=== PATIENT | male | born 1955 | race Caucasian/White ===

== ENCOUNTER 2021-09-27 08:57 | Emergency (ER) | payer MEDICARE ==
[~2021-09-27] VITALS: Ht 185.4 cm; Wt 88.2 kg
[2021-09-27 08:58] VITALS: BP 200/90
[2021-09-27] MEDS ORDERED: METF-838 PO (09:15)
[2021-09-27] MEDS ORDERED: LISI40TA4 PO (09:15)
[2021-09-27] MEDS ORDERED: B-122500 PO (09:15)
[2021-09-27] MEDS ORDERED: RABE1TAB4 PO (09:15)
[2021-09-27] MEDS ORDERED: ALLE180T33 PO (09:15)
[2021-09-27] MEDS ORDERED: SILD25TA2 PO (09:15)
[2021-09-27] MEDS ORDERED: LEVO112T2 PO (09:15)
[2021-09-27] MEDS ORDERED: ATOR80TA59 PO (09:15)
[2021-09-27] MEDS ORDERED: ASPI81CH33 PO (09:15)
[2021-09-27] MEDS ORDERED: GABA600T4 PO (09:15)
[2021-09-27] MEDS ORDERED: MORPHINE 4 MG/ML 1ML VIAL/SYRINGE (J2270) IV ONE (12:40)
[2021-09-27] MEDS ORDERED: ONDANSETRON 4MG/2ML VIAL IV ONE (12:40)
[2021-09-27 13:12] LABS: BASO # 0.1 10^3/uL (0.0-0.2); BASO % 0.7 % (0.0-1.0); EOS # 0.1 10^3/uL (0.0-0.5); EOS % 1.5 % (0.0-3.0); HEMATOCRIT 42.9 % (42.0-52.0); HEMOGLOBIN 14.6 g/dl (13.5-17.5); LYMPH # 1.4 10^3/uL (1.5-5.0); LYMPH % 19.9 % (24.0-44.0); MEAN CORPUSCULAR HEMOGLOBIN 30.6 pg (27.0-33.0); MEAN CORPUSCULAR VOLUME 89.9 fl (80.0-96.0); MONO # 0.8 10^3/uL (0.0-0.8); MONO % 11.1 % (2.0-8.0); NEUTROPHILS # 4.8 10^3/uL (1.5-8.5); NEUTROPHILS % 66.5 % (36.0-66.0); PLATELET COUNT, AUTOMATED 232 10^3/uL (150-450); RED BLOOD COUNT 4.77 10^6/uL (4.30-6.10); WHITE BLOOD COUNT 7.2 10^3/uL (4.0-10.0)
[2021-09-27] MEDS ORDERED: ISOVUE-370 76% 100ML VIAL As Ordered ONE (13:58)
[2021-09-27] MEDS ORDERED: PERC5TAB12 PO (14:48)
[2021-09-27] MEDS ORDERED: PERCOCET 5MG/325MG TAB PO ONE (14:50)
== END 2021-09-27 14:57 | disposition home or self-care (01) ==
LOC: M ED 08:57
DX: R07.81 Pleurodynia (principal); I10 Essential (primary) hypertension; M54.50 Low back pain, unspecified; E11.9 Type 2 diabetes mellitus without complications; M43.26 Fusion of spine, lumbar region; Z88.6 Allergy status to analgesic agent; Z91.030 Bee allergy status; Z79.811 Long term (current) use of aromatase inhibitors; Z79.899 Other long term (current) drug therapy
CPT/HCPCS: 71275; 80047; 85025; 96374; 96375; 99283; J2270; J2405; Q9967

== ENCOUNTER → 2021-10-25 | Outpatient (CLI) | payer OTHER ==
[~2021-10-25] MED LIST: ALLE180T33 PO; ASPI81CH33 PO; ATOR80TA59 PO; B-122500 PO; GABA600T4 PO; LEVO112T2 PO; LISI40TA4 PO; METF-838 PO; PERC5TAB12 PO; RABE1TAB4 PO; SILD25TA2 PO
== END ==
LOC: M PAIN 10:30
PROVIDERS: ATTEND Nurse Practitioner Family
DX: M96.1 Postlaminectomy syndrome, not elsewhere classified (principal); E11.9 Type 2 diabetes mellitus without complications; E03.9 Hypothyroidism, unspecified; G47.30 Sleep apnea, unspecified; K21.9 Gastro-esophageal reflux disease without esophagitis; Z87.891 Personal history of nicotine dependence; Z88.6 Allergy status to analgesic agent; Z91.030 Bee allergy status; Z79.82 Long term (current) use of aspirin; Z79.84 Long term (current) use of oral hypoglycemic drugs; Z79.899 Other long term (current) drug therapy

== ENCOUNTER → 2021-12-11 | Outpatient (CLI) | payer OTHER ==
[2021-12-11 13:24] LABS: ALBUMIN 3.7 GM/DL (3.2-5.2); ALT/SGPT 25 U/L (12-78); BILIRUBIN,TOTAL 0.6 MG/DL (0.2-1.0); BLOOD UREA NITROGEN 15 MG/DL (7-18); CALCIUM LEVEL 8.5 MG/DL (8.8-10.2); CARBON DIOXIDE LEVEL 31 MEQ/L (21-32); CHLORIDE LEVEL 107 MEQ/L (98-107); CHOLESTEROL LEVEL 111 MG/DL (<200); CHOLESTEROL RISK RATIO 2.642 (<5); CREATININE FOR GFR 1.11 MG/DL (0.70-1.30); GLOMERULAR FILTRATION RATE > 60.0 (>49); GLUCOSE, FASTING 157 MG/DL (70-100); HDL CHOLESTEROL 42 MG/DL (>40); LDL CHOLESTEROL 52 MG/DL (<100); NON-HDL-C 69 MG/DL; POTASSIUM SERUM 3.8 MEQ/L (3.5-5.1); SODIUM LEVEL 142 MEQ/L (136-145); TOTAL PROTEIN 6.5 GM/DL (6.4-8.2); TRIGLYCERIDES LEVEL 87 MG/DL (<150)
[2021-12-11 14:30] LABS: HEMOGLOBIN A1c 9.4 %
== END ==
LOC: M WUC 08:04
PROVIDERS: ATTEND Family Medicine
DX: E78.5 Hyperlipidemia, unspecified (principal); E11.9 Type 2 diabetes mellitus without complications; E03.9 Hypothyroidism, unspecified; R19.7 Diarrhea, unspecified

== ENCOUNTER 2022-01-03 07:01 | Day surgery (SDC) | payer OTHER ==
[~2022-01-03] VITALS: Ht 185.4 cm; Wt 92.1 kg
[~2022-01-03 07:01] MED LIST changes: +FAMO20TA5; +FARX1TAB5; +NS 1,000 ML IV ONE
[2022-01-03] MEDS ORDERED: LIDOCAINE 2% 100MG/5ML SDV (FOR ANES.) As Ordered ONE (07:11)
[2022-01-03] MEDS ORDERED: propofoL 200 MG/20 ML VIAL As Ordered ONE (07:11)
[2022-01-03] MEDS ORDERED: fentaNYL 100 MCG/2 ML INJECTION As Ordered ONE (09:21)
[2022-01-03 10:23] VITALS: BP 165/79
== END 2022-01-03 10:25 | disposition home or self-care (01) ==
LOC: M OPP 07:01
PROVIDERS: ATTEND Surgery
DX: K22.89 Other specified disease of esophagus (principal); K21.9 Gastro-esophageal reflux disease without esophagitis; K31.7 Polyp of stomach and duodenum; Z80.0 Family history of malignant neoplasm of digestive organs; Z80.42 Family history of malignant neoplasm of prostate; G47.33 Obstructive sleep apnea (adult) (pediatric); Z79.82 Long term (current) use of aspirin; Z79.899 Other long term (current) drug therapy; Z88.8 Allergy status to other drugs, medicaments and biological substances; Z91.030 Bee allergy status; Z87.891 Personal history of nicotine dependence
CPT/HCPCS: 43239; 88305; J3010

== ENCOUNTER → 2022-06-04 | Outpatient (CLI) | payer OTHER ==
[~2022-06-04] MED LIST changes: -NS 1,000 ML IV ONE
== END ==
LOC: M RAD 07:42
PROVIDERS: ATTEND Nurse Practitioner Family
DX: M47.816 Spondylosis without myelopathy or radiculopathy, lumbar region (principal); M51.36 Other intervertebral disc degeneration, lumbar region; M54.41 Lumbago with sciatica, right side; M41.55 Other secondary scoliosis, thoracolumbar region; G89.29 Other chronic pain

== ENCOUNTER → 2022-10-25 | Outpatient (CLI) | payer OTHER ==
[2022-10-25 12:40] LABS: BASO % 0.6 % (0.0-1.0); EOS # 0.3 10^3/uL (0.0-0.5); HEMATOCRIT 37.5 % (42.0-52.0); HEMOGLOBIN 12.4 g/dl (13.5-17.5); LYMPH # 1.1 10^3/uL (1.5-5.0); LYMPH % 17.4 % (24.0-44.0); MEAN CORPUSCULAR HGB CONC 33.1 g/dl (32.0-36.5); MEAN CORPUSCULAR VOLUME 93.8 fl (80.0-96.0); MONO # 0.9 10^3/uL (0.0-0.8); MONO % 14.5 % (2.0-8.0); NEUTROPHILS # 4.1 10^3/uL (1.5-8.5); NEUTROPHILS % 63.3 % (36.0-66.0); PLATELET COUNT, AUTOMATED 196 10^3/uL (150-450); WHITE BLOOD COUNT 6.5 10^3/uL (4.0-10.0)
[2022-10-25 13:08] LABS: CREATININE, URINE 71.1 MG/DL
[2022-10-25 13:09] LABS: MAU/CREAT RATIO 18.2 MCG/MG (0.0-30.0)
[2022-10-25 14:17] LABS: THYROID STIMULATING HORMONE 1.273 uIU/ML (0.55-4.78)
[2022-10-25 14:29] LABS: ALBUMIN 4.3 G/DL (3.2-5.2); ALKALINE PHOSPHATASE 91 U/L (46-116); ALT/SGPT 19 U/L (7.0-40); AST/SGOT 23 U/L (<34); BILIRUBIN,TOTAL 0.7 MG/DL (0.3-1.2); BLOOD UREA NITROGEN 23 MG/DL (9-23); CALCIUM LEVEL 9.2 MG/DL (8.3-10.6); CARBON DIOXIDE LEVEL 27 MMOL/L (20-31); CHLORIDE LEVEL 105 MMOL/L (98-107); CHOLESTEROL LEVEL 102 MG/DL (<200); CHOLESTEROL RISK RATIO 2.64 (<5); CREATININE FOR GFR 1.18 MG/DL (0.70-1.30); GLOMERULAR FILTRATION RATE > 60.0 (>49); GLUCOSE, FASTING 125 MG/DL (74-106); HDL CHOLESTEROL 38.6 MG/DL (>40); LDL CHOLESTEROL 47.6 MG/DL (<100); NON-HDL-C 63 MG/DL; POTASSIUM SERUM 4.8 MMOL/L (3.5-5.1); SODIUM LEVEL 140 MMOL/L (136-145); TOTAL PROTEIN 7.5 G/DL (5.7-8.2); TRIGLYCERIDES LEVEL 79 MG/DL (<150)
[2022-10-25 18:23] LABS: HEMOGLOBIN A1c 7.5 % (4.0-6.0)
== END ==
LOC: M WUC 09:12
PROVIDERS: ATTEND Family Medicine
DX: E11.9 Type 2 diabetes mellitus without complications (principal); E78.5 Hyperlipidemia, unspecified; E03.9 Hypothyroidism, unspecified; I10 Essential (primary) hypertension

== ENCOUNTER → 2023-06-15 | Outpatient (CLI) | payer OTHER ==
[~2023-06-15] MED LIST changes: +AMLO1TAB24 PO; +AMOX875T2; +KETO2CR; +PRED20TA PO; +SILD50TA2
== END ==
LOC: M RAD 14:35
PROVIDERS: ATTEND Family Medicine
DX: G43.919 Migraine, unspecified, intractable, without status migrainosus (principal); I63.531 Cerebral infarction due to unspecified occlusion or stenosis of right posterior cerebral artery

== ENCOUNTER 2023-08-30 14:36 | Emergency (ER) | payer OTHER ==
[~2023-08-30] VITALS: Ht 185.4 cm; Wt 90.3 kg
[2023-08-30] MEDS ORDERED: METO1TAB7 (15:06)
[2023-08-30] MEDS ORDERED: PRAS10TA2 (15:06)
[2023-08-30] MEDS ORDERED: ACETAMINOPHEN 325 MG TAB PO ONE (15:30)
[2023-08-30 17:00] VITALS: BP 171/79
[2023-08-30 17:06] VITALS: TEMP 98.2; O2SAT 98
== END 2023-08-30 17:26 | disposition home or self-care (01) ==
LOC: M ED 14:36 → EDBD 14:36 → M ED 17:26
DX: M19.012 Primary osteoarthritis, left shoulder (principal); I10 Essential (primary) hypertension; K21.9 Gastro-esophageal reflux disease without esophagitis; J44.9 Chronic obstructive pulmonary disease, unspecified; E78.5 Hyperlipidemia, unspecified; Z91.030 Bee allergy status; Z88.6 Allergy status to analgesic agent; Z79.82 Long term (current) use of aspirin; Z79.811 Long term (current) use of aromatase inhibitors; Z79.4 Long term (current) use of insulin; Z79.899 Other long term (current) drug therapy
CPT/HCPCS: 73030; 99284; G0463

== ENCOUNTER → 2023-11-06 | Outpatient (REF) | payer OTHER ==
[~2023-11-06] MED LIST changes: +METO1TAB7; +PRAS10TA2
[2023-11-06 12:32] LABS: BASO # 0.1 10^3/uL (0.0-0.2); BASO % 0.7 % (0.0-1.0); EOS # 0.2 10^3/uL (0.0-0.5); EOS % 3.1 % (0.0-3.0); HEMATOCRIT 36.5 % (42.0-52.0); HEMOGLOBIN 12.1 g/dl (13.5-17.5); LYMPH # 0.6 10^3/uL (1.5-5.0); LYMPH % 7.7 % (24.0-44.0); MEAN CORPUSCULAR HEMOGLOBIN 30.6 pg (27.0-33.0); MEAN CORPUSCULAR HGB CONC 33.2 g/dl (32.0-36.5); MEAN CORPUSCULAR VOLUME 92.4 fl (80.0-96.0); MONO # 1.5 10^3/uL (0.0-0.8); MONO % 19.6 % (2.0-8.0); NEUTROPHILS # 5.1 10^3/uL (1.5-8.5); NEUTROPHILS % 68.4 % (36.0-66.0); PLATELET COUNT, AUTOMATED 199 10^3/uL (150-450); RED BLOOD COUNT 3.95 10^6/uL (4.30-6.10); WHITE BLOOD COUNT 7.4 10^3/uL (4.0-10.0)
[2023-11-06 13:02] LABS: CREATININE, URINE 55.3 MG/DL
[2023-11-06 13:04] LABS: ALKALINE PHOSPHATASE 87 U/L (46-116); ALT/SGPT 15 U/L (7.0-40); AST/SGOT 13 U/L (<34); BILIRUBIN,TOTAL 0.4 MG/DL (0.3-1.2); BLOOD UREA NITROGEN 26 MG/DL (9-23); CALCIUM LEVEL 8.4 MG/DL (8.3-10.6); CARBON DIOXIDE LEVEL 29 MMOL/L (20-31); CHLORIDE LEVEL 106 MMOL/L (98-107); CHOLESTEROL LEVEL 119 MG/DL (<200); CHOLESTEROL RISK RATIO 3.34 (<5); CREATININE FOR GFR 1.07 MG/DL (0.70-1.30); GLOMERULAR FILTRATION RATE > 60.0 (>49); GLUCOSE, FASTING 285 MG/DL (74-106); HDL CHOLESTEROL 35.6 MG/DL (>40); LDL CHOLESTEROL 56.4 MG/DL (<100); NON-HDL-C 83.4 MG/DL; POTASSIUM SERUM 4.6 MMOL/L (3.5-5.1); SODIUM LEVEL 138 MMOL/L (136-145); TOTAL PROTEIN 6.7 G/DL (5.7-8.2); TRIGLYCERIDES LEVEL 135 MG/DL (<150)
[2023-11-06 13:24] LABS: HEMOGLOBIN A1c 8.2 % (4.0-6.0)
== END ==
LOC: M LABWUC 11:34
PROVIDERS: ATTEND Family Medicine
DX: E11.9 Type 2 diabetes mellitus without complications (principal); E78.5 Hyperlipidemia, unspecified

== ENCOUNTER → 2023-11-21 | Outpatient (CLI) | payer OTHER ==
[2023-11-21 17:50] LABS: PERCENT SATURATION 23.7 % (19.7-50.0)
[2023-11-21 17:51] LABS: FOLATE 17.32 NG/ML (>5.4)
[2023-11-21 17:52] LABS: THYROID STIMULATING HORMONE 1.419 uIU/ML (0.55-4.78)
== END ==
LOC: M WUC 13:16
PROVIDERS: ATTEND Family Medicine
DX: E03.9 Hypothyroidism, unspecified (principal); D64.9 Anemia, unspecified

== ENCOUNTER 2024-03-04 08:28 | Day surgery (SDC) | payer OTHER ==
[~2024-03-04] VITALS: Ht 185.4 cm; Wt 87.4 kg
[~2024-03-04 08:28] MED LIST changes: +ACET-683 PO; +BENA25TA5 PO; +PHENYLEPHRINE 10% OPHTH SOL 5ML OD PRN
[2024-03-04] MEDS: OFLOXACIN 0.3 % (OCUFLOX) OPTH SOL 5ML OD ONE (09:13)
[2024-03-04] MEDS: PHENYLEPHRINE 2.5% OPHTH SOL 2ML OD SCH (09:14)
[2024-03-04] MEDS: ATROPINE SULFATE 1% OPHTH SOLN 2ML BTL OD SCH (09:14)
[2024-03-04] MEDS: LIDOCAINE 3.5 % 1ML OPHTH TOPICAL GEL OU ONE (09:14)
[2024-03-04] MEDS: TROPICAMIDE 1% OPHTH SOLN 15ML OD SCH (09:14)
[2024-03-04] MEDS ORDERED: MIDAZOLAM INJ 2MG/2ML VIAL As Ordered ONE (09:52)
[2024-03-04] MEDS: LIDOCAINE 1% SDV 5ML VIAL As Ordered ONE (09:52)
[2024-03-04] MEDS: BSS IRRIG/VANCO(10MG)/TOBRA(5MG)/EPINEPH(1:1000-0.5CC)500ML BAG-ORONLY As Ordered ONE (09:52)
[2024-03-04] MEDS: CEFUROXIME 1MG/0.1ML INTRACAMERAL INJ As Ordered ONE (09:52)
[2024-03-04] MEDS ORDERED: fentaNYL 100 MCG/2 ML INJECTION As Ordered ONE (09:52)
[2024-03-04 10:02] VITALS: BP 168/77; TEMP 97.2; O2SAT 99
== END 2024-03-04 10:30 | disposition home or self-care (01) ==
LOC: M SDC 08:28
PROVIDERS: ATTEND Ophthalmology
DX: H25.11 Age-related nuclear cataract, right eye (principal); I25.2 Old myocardial infarction; K21.9 Gastro-esophageal reflux disease without esophagitis; E11.9 Type 2 diabetes mellitus without complications; E03.9 Hypothyroidism, unspecified; Z98.61 Coronary angioplasty status; Z91.030 Bee allergy status; Z88.8 Allergy status to other drugs, medicaments and biological substances; Z79.82 Long term (current) use of aspirin; Z79.84 Long term (current) use of oral hypoglycemic drugs
CPT/HCPCS: 66984; 92015; J0697; J2250; J3010; V2788

== ENCOUNTER 2024-03-10 12:32 | Emergency (ER) | payer OTHER, MEDICAID ==
[~2024-03-10] VITALS: Ht 185.4 cm; Wt 89.1 kg
[~2024-03-10 12:32] MED LIST changes: -FARX1TAB5; +FARX1TAB5 PO; -METO1TAB7; +METO1TAB7 PO; -PHENYLEPHRINE 10% OPHTH SOL 5ML OD PRN; -PRAS10TA2; +PRAS10TA2 PO; -SILD50TA2; +SILD50TA2 PO
[2024-03-10 12:35] VITALS: TEMP 99.1
[2024-03-10] MEDS ORDERED: CIPRHCOTIC AS (12:44)
[2024-03-10] MEDS ORDERED: PRED1SOL3 OP (12:44)
[2024-03-10 13:55] LABS: HEMATOCRIT 32.5 % (42.0-52.0); HEMOGLOBIN 10.9 g/dl (13.5-17.5); MEAN CORPUSCULAR HEMOGLOBIN 30.9 pg (27.0-33.0); MEAN CORPUSCULAR HGB CONC 33.5 g/dl (32.0-36.5); MEAN CORPUSCULAR VOLUME 92.1 fl (80.0-96.0); PLATELET COUNT, AUTOMATED 186 10^3/uL (150-450); RED BLOOD COUNT 3.53 10^6/uL (4.30-6.10); WHITE BLOOD COUNT 5.8 10^3/uL (4.0-10.0)
[2024-03-10 14:08] LABS: INR 1.07; PROTHROMBIN TIME 13.6 SECONDS (12.5-14.5)
[2024-03-10 14:31] LABS: BLOOD UREA NITROGEN 44 MG/DL (9-23); CALCIUM LEVEL 8.6 MG/DL (8.3-10.6); CARBON DIOXIDE LEVEL 29 MMOL/L (20-31); CHLORIDE LEVEL 108 MMOL/L (98-107); CREATININE FOR GFR 1.14 MG/DL (0.70-1.30); GLOMERULAR FILTRATION RATE > 60.0 (>49); GLUCOSE, FASTING 196 MG/DL (74-106); POTASSIUM SERUM 4.5 MMOL/L (3.5-5.1); SODIUM LEVEL 141 MMOL/L (136-145)
[2024-03-10] MEDS ORDERED: ISOVUE-370 76% 100ML VIAL As Ordered ONE (14:33)
[2024-03-10] MEDS: MIDAZOLAM INJ 2MG/2ML VIAL IV STA (14:38)
[2024-03-10 16:00] VITALS: BP 136/63; O2SAT 98
[2024-03-10] MEDS ORDERED: ASPI-655 PO (23:12)
[2024-03-10] MEDS ORDERED: LEVO112T2 PO (23:12)
[2024-03-10] MEDS ORDERED: ACET-897 PO (23:12)
[2024-03-10] MEDS ORDERED: LISI40TA4 PO (23:12)
[2024-03-10] MEDS ORDERED: RABE1TAB4 PO (23:12)
[2024-03-10] MEDS ORDERED: ACIP1TAB PO (23:12)
[2024-03-10] MEDS ORDERED: CIPR0.3S37 OD (23:19)
[2024-03-10] MEDS ORDERED: KETO0.5S4 OD (23:19)
[2024-03-10] MEDS ORDERED: FAMO20TA PO (23:24)
[2024-03-10] MEDS ORDERED: FARX1TAB3 PO (23:24)
[2024-03-11] MEDS ORDERED: PREDOPD OD (04:43)
== END 2024-03-10 16:15 | disposition home or self-care (01) ==
LOC: M ED 12:32
DX: R59.9 Enlarged lymph nodes, unspecified (principal); J35.1 Hypertrophy of tonsils; E11.9 Type 2 diabetes mellitus without complications; I10 Essential (primary) hypertension; E78.5 Hyperlipidemia, unspecified; E03.9 Hypothyroidism, unspecified; G47.33 Obstructive sleep apnea (adult) (pediatric); Z87.891 Personal history of nicotine dependence; Z91.030 Bee allergy status; Z88.6 Allergy status to analgesic agent; Z79.82 Long term (current) use of aspirin; Z79.02 Long term (current) use of antithrombotics/antiplatelets; Z79.811 Long term (current) use of aromatase inhibitors; Z79.52 Long term (current) use of systemic steroids; Z79.899 Other long term (current) drug therapy

== ENCOUNTER 2024-03-10 17:57 | Inpatient (IN) | payer OTHER, MEDICAID ==
[~2024-03-10] VITALS: Ht 185.4 cm; Wt 88.6 kg
[~2024-03-10 17:57] MED LIST changes: +CIPRHCOTIC AS; +PRED1SOL3 OP
[2024-03-10 19:16] LABS: HEMATOCRIT 31.5 % (42.0-52.0); HEMOGLOBIN 10.6 g/dl (13.5-17.5); MEAN CORPUSCULAR HEMOGLOBIN 31.1 pg (27.0-33.0); MEAN CORPUSCULAR HGB CONC 33.7 g/dl (32.0-36.5); MEAN CORPUSCULAR VOLUME 92.4 fl (80.0-96.0); PLATELET COUNT, AUTOMATED 207 10^3/uL (150-450); RED BLOOD COUNT 3.41 10^6/uL (4.30-6.10)
[2024-03-10] MEDS ORDERED: ISOVUE-370 76% 100ML VIAL As Ordered ONE (21:07)
[2024-03-10] MEDS: MIDAZOLAM INJ 2MG/2ML VIAL IV STA (21:23)
[2024-03-10] MEDS ORDERED: ACIP1TAB PO (23:12)
[2024-03-10] MEDS ORDERED: LISI40TA4 PO (23:12)
[2024-03-10] MEDS ORDERED: RABE1TAB4 PO (23:12)
[2024-03-10] MEDS ORDERED: ASPI-655 PO (23:12)
[2024-03-10] MEDS ORDERED: ACET-897 PO (23:12)
[2024-03-10] MEDS ORDERED: LEVO112T2 PO (23:12)
[2024-03-10] MEDS ORDERED: KETO0.5S4 OD (23:19)
[2024-03-10] MEDS ORDERED: CIPR0.3S37 OD (23:19)
[2024-03-10] MEDS ORDERED: FARX1TAB3 PO (23:24)
[2024-03-10] MEDS ORDERED: FAMO20TA PO (23:24)
[2024-03-10] MEDS ORDERED: HOME MED LIST COMPLETE! XX SCH (23:30)
[2024-03-10] MEDS ORDERED: MOM 30ML SUSPENSION UDC PO PRN (23:50)
[2024-03-10] MEDS ORDERED: MAALOX 30 ML SUSP *UDC PO PRN (23:50)
[2024-03-11] VITALS (19 sets, daily range): BP systolic 115–185; BP diastolic 57–86; TEMP 97.6–99.4; O2SAT 95–99
[2024-03-11 00:04] LABS: BLOOD UREA NITROGEN 43 MG/DL (9-23); CALCIUM LEVEL 8.8 MG/DL (8.3-10.6); CARBON DIOXIDE LEVEL 28 MMOL/L (20-31); CHLORIDE LEVEL 111 MMOL/L (98-107); CREATININE FOR GFR 1.04 MG/DL (0.70-1.30); GLOMERULAR FILTRATION RATE > 60.0 (>49); GLUCOSE, FASTING 202 MG/DL (74-106); POTASSIUM SERUM 4.1 MMOL/L (3.5-5.1); SODIUM LEVEL 143 MMOL/L (136-145)
[2024-03-11] MEDS: NS 1,000 ML IV SCH (00:06)
[2024-03-11] MEDS ORDERED: DEXTROSE 50% 50ML SYRINGE IV PRN (02:15)
[2024-03-11] MEDS ORDERED: GLUCAGON INJ 1MG VIAL SC PRN (02:15)
[2024-03-11] MEDS ORDERED: GLUCOSE 4 GM CHEW PO PRN (02:15)
[2024-03-11] MEDS ORDERED: PREDOPD OD (04:43)
[2024-03-11] MEDS: LEVOTHYROXINE 112MCG TABLET (0.112MG) PO SCH (06:00)
[2024-03-11] MEDS: INSULIN LISPRO (NovoLOG) PER UNIT SC SCH ×2 (06:32→21:38)
[2024-03-11] MEDS: LEVOTHYROXINE 100MCG (0.1MG) 5ML SDV PF (SOLUTION FORM) IV ONE (06:37)
[2024-03-11] MEDS ORDERED: METOPROLOL 5 MG/5 ML VIAL IV PRN ×2 (08:05→09:00)
[2024-03-11] MEDS: PANTOPRAZOLE 20 MG TAB PO SCH (08:59)
[2024-03-11] MEDS: FAMOTIDINE 20 MG TAB PO SCH (09:00)
[2024-03-11] MEDS: DAPAGLIFLOZIN PROPANEDIOL 10MG TABLET (FARXIGA) PO SCH (09:00)
[2024-03-11] MEDS ORDERED: CIPROFLOXACIN 0.3% OPHTH SOLN 2.5ML OD SCH (09:00)
[2024-03-11] MEDS: ATORVASTATIN 20 MG TAB PO SCH (09:00)
[2024-03-11] MEDS ORDERED: KETOROLAC 0.5% OPHTH SOLN OD SCH (09:00)
[2024-03-11] MEDS: amLODIPine 5 MG TAB PO SCH (09:00)
[2024-03-11] MEDS: lisinopriL 40MG TAB PO SCH (09:01)
[2024-03-11] MEDS: prednisoLONE ACET 1% OPHTH SUSP 5ML OD SCH (09:40)
[2024-03-11] MEDS ORDERED: MORPHINE 2 MG/ML 1ML VIAL As Ordered ONE (10:14)
[2024-03-11] MEDS: MORPHINE 2 MG/ML 1ML VIAL IV STA (10:19)
[2024-03-11] MEDS: ASPIRIN 300 MG SUPP PR SCH (10:22)
[2024-03-11] MEDS: ACETAMINOPHEN *IV* 1,000 MG in IV 1 EA IV STA (10:27)
[2024-03-11] MEDS: diphenhydrAMINE 50MG/ML VIAL IV STA (14:34)
[2024-03-11] MEDS: methylPREDNISolone 125MG 2ML VIAL IV ONE (14:34)
[2024-03-11] MEDS ORDERED: LIDOCAINE 1% MDV 20ML VIAL As Ordered ONE (15:02)
[2024-03-11] MEDS ORDERED: NON-FORMULARY 1 EA EA PO SCH (20:00)
[2024-03-11] MEDS: PANTOPRAZOLE 40MG VIAL IV SCH (20:22)
[2024-03-11] MEDS ORDERED: METOPROLOL SUCC (TopROL XL) 50MG **XL** TAB PO SCH (21:00)
[2024-03-11] MEDS ORDERED: ASPIRIN 81MG CHEW TABLET PO SCH (21:00)
[2024-03-12] VITALS (7 sets, daily range): BP systolic 131–176; BP diastolic 63–82; TEMP 98.1–98.5; O2SAT 96–98
[2024-03-12 04:44] LABS: HEMATOCRIT 26.3 % (42.0-52.0); HEMOGLOBIN 8.8 g/dl (13.5-17.5); LYMPH # 0.7 10^3/uL (1.5-5.0); LYMPH % 9.6 % (24.0-44.0); MEAN CORPUSCULAR HGB CONC 33.5 g/dl (32.0-36.5); MEAN CORPUSCULAR VOLUME 92.6 fl (80.0-96.0); MONO # 0.1 10^3/uL (0.0-0.8); MONO % 1.1 % (2.0-8.0); NEUTROPHILS # 6.7 10^3/uL (1.5-8.5); NEUTROPHILS % 88.9 % (36.0-66.0); PLATELET COUNT, AUTOMATED 174 10^3/uL (150-450); RED BLOOD COUNT 2.84 10^6/uL (4.30-6.10); WHITE BLOOD COUNT 7.5 10^3/uL (4.0-10.0)
[2024-03-12 05:07] LABS: INR 1.13; PROTHROMBIN TIME 14.1 SECONDS (12.5-14.5)
[2024-03-12 05:08] LABS: BLOOD UREA NITROGEN 34 MG/DL (9-23); CALCIUM LEVEL 8.5 MG/DL (8.3-10.6); CARBON DIOXIDE LEVEL 25 MMOL/L (20-31); CHLORIDE LEVEL 115 MMOL/L (98-107); GLOMERULAR FILTRATION RATE > 60.0 (>49); GLUCOSE, FASTING 186 MG/DL (74-106); POTASSIUM SERUM 4.2 MMOL/L (3.5-5.1); SODIUM LEVEL 145 MMOL/L (136-145)
[2024-03-12] MEDS: INSULIN LISPRO (NovoLOG) PER UNIT SC SCH (07:41)
[2024-03-12] MEDS: predniSONE 20 MG TAB PO SCH (10:03)
[2024-03-12] MEDS: PRASUGREL 10MG TABLET (PATIENT'S OWN MED) PO SCH (10:03)
[2024-03-12] MEDS: ACETAMINOPHEN TAB 650MG DOSE (2X325MG) PO PRN (10:06)
[2024-03-12] MEDS: METOPROLOL SUCC (TopROL XL) 50MG **XL** TAB PO ONE (12:59)
[2024-03-12 13:58] LABS: PERCENT SATURATION 34.9 % (19.7-50.0)
[2024-03-12 14:00] LABS: FERRITIN 95.9 NG/ML (10.5-307.3); FOLATE 14.06 NG/ML (>5.4)
[2024-03-12] MEDS: PERCOCET 5MG/325MG TAB PO PRN (20:14)
[2024-03-13 04:00] VITALS: BP 150/73; TEMP 97.8; O2SAT 98
[2024-03-13 07:20] LABS: BASO % 0.1 % (0.0-1.0); EOS % 0.2 % (0.0-3.0); HEMATOCRIT 24.1 % (42.0-52.0); HEMOGLOBIN 8.1 g/dl (13.5-17.5); LYMPH # 1.6 10^3/uL (1.5-5.0); LYMPH % 13.3 % (24.0-44.0); MEAN CORPUSCULAR HGB CONC 33.6 g/dl (32.0-36.5); MEAN CORPUSCULAR VOLUME 92.3 fl (80.0-96.0); MONO % 8.5 % (2.0-8.0); NEUTROPHILS # 9.2 10^3/uL (1.5-8.5); NEUTROPHILS % 77.4 % (36.0-66.0); PLATELET COUNT, AUTOMATED 185 10^3/uL (150-450); RED BLOOD COUNT 2.61 10^6/uL (4.30-6.10); WHITE BLOOD COUNT 11.8 10^3/uL (4.0-10.0)
[2024-03-13 07:26] VITALS: BP 173/80; TEMP 97.1; O2SAT 98
[2024-03-13 07:41] VITALS: BP 173/80
[2024-03-13] MEDS: METOPROLOL SUCC (TopROL XL) 50MG **XL** TAB PO SCH (07:41)
[2024-03-13 07:44] LABS: BLOOD UREA NITROGEN 28 MG/DL (9-23); CALCIUM LEVEL 8.3 MG/DL (8.3-10.6); CARBON DIOXIDE LEVEL 26 MMOL/L (20-31); CHLORIDE LEVEL 111 MMOL/L (98-107); CREATININE FOR GFR 1.03 MG/DL (0.70-1.30); GLOMERULAR FILTRATION RATE > 60.0 (>49); GLUCOSE, FASTING 166 MG/DL (74-106); POTASSIUM SERUM 3.8 MMOL/L (3.5-5.1); SODIUM LEVEL 142 MMOL/L (136-145)
[2024-03-13 09:00] VITALS: BP 142/64
[2024-03-13 11:45] VITALS: BP 164/74; TEMP 97.7; O2SAT 99
[2024-03-13] MEDS: FERRIC CARBOXYMALTOSE INJ 750 MG, VIAL MATE ADAPTER 1 EACH in NS 250 ML IV ONE (13:32)
[2024-03-13 16:21] VITALS: BP 164/80
[2024-03-13] MEDS ORDERED: NORV5TAB PO (16:33)
[2024-03-13] MEDS ORDERED: PRED20TA PO (16:33)
== END 2024-03-13 18:20 | disposition home or self-care (01) | DRG 144 ==
LOC: M ED 17:57 → M ED INP 23:02 → M ICU 03-11 00:20 → M MSPAV 03-13 11:41
PROVIDERS: ADMIT Family Medicine; ATTEND Internal Medicine
PROC: 0CJS8ZZ Inspection of Larynx, Via Natural or Artificial Opening Endoscopic (ICD-10-PCS; 2024-03-11)
PROC: 07B13ZX Excision of Right Neck Lymphatic, Percutaneous Approach, Diagnostic (ICD-10-PCS; principal; 2024-03-11 15:30)
DX: C09.9 Malignant neoplasm of tonsil, unspecified (principal); R04.2 Hemoptysis; D62 Acute posthemorrhagic anemia; C77.0 Secondary and unspecified malignant neoplasm of lymph nodes of head, face and neck; I10 Essential (primary) hypertension; E11.9 Type 2 diabetes mellitus without complications; E03.9 Hypothyroidism, unspecified; I25.10 Atherosclerotic heart disease of native coronary artery without angina pectoris; E78.5 Hyperlipidemia, unspecified; K21.9 Gastro-esophageal reflux disease without esophagitis; Z95.5 Presence of coronary angioplasty implant and graft; Z91.030 Bee allergy status; Z88.6 Allergy status to analgesic agent; Z79.899 Other long term (current) drug therapy; Z98.49 Cataract extraction status, unspecified eye

== ENCOUNTER → 2024-03-31 | Outpatient (CLI) | payer OTHER, MEDICAID ==
[~2024-03-31] MED LIST changes: +ACET-897 PO; +ACIP1TAB PO; +ASPI-655 PO; +CIPR0.3S37 OD; +FAMO20TA PO; +FARX1TAB3 PO; +KETO0.5S4 OD; +LORA1TAB23 PO; +NORV5TAB PO; +ONDA-284 PO; +PREDOPD OD; +PROC10TA5 PO
== END ==
LOC: M PLARAD 09:03
PROVIDERS: ATTEND General Practice
DX: C09.0 Malignant neoplasm of tonsillar fossa (principal)
CPT/HCPCS: 78815; A9552

== ENCOUNTER → 2024-04-14 | Outpatient (CLI) | payer OTHER, MEDICAID ==
[~2024-04-14] MED LIST changes: +LIDOCAINE 1% MDV 20ML VIAL As Ordered ONE; +MIDAZOLAM INJ 2MG/2ML VIAL As Ordered ONE; +ceFAZolin 2 GM/D5W 50 ML IV BAG As Ordered ONE; +fentaNYL 100 MCG/2 ML INJECTION As Ordered ONE
[2024-04-14 13:43] VITALS: TEMP 98.4
[2024-04-14] MEDS: NS 1,000 ML IV SCH (14:22)
[2024-04-14] MEDS: ceFAZolin SOD 2 GM in IV 1 EA IV ONE (14:22)
[2024-04-14 15:45] VITALS: BP 172/84; O2SAT 100
== END ==
LOC: M IRPRO 13:25
PROVIDERS: ATTEND Internal Medicine Hematology & Oncology
DX: C09.0 Malignant neoplasm of tonsillar fossa (principal)
CPT/HCPCS: 36561; 99152; 99153; C1769; J0690; J2250; J3010

== ENCOUNTER → 2024-04-22 | Outpatient (RCR) | payer OTHER, MEDICAID ==
[~2024-04-22] MED LIST changes: +ALPR0.5T3 PO; -LIDOCAINE 1% MDV 20ML VIAL As Ordered ONE; +MAGN400T2 PO; -MIDAZOLAM INJ 2MG/2ML VIAL As Ordered ONE; -ceFAZolin 2 GM/D5W 50 ML IV BAG As Ordered ONE; -fentaNYL 100 MCG/2 ML INJECTION As Ordered ONE
== END ==
LOC: M ONCR 04-13 13:48
PROVIDERS: ATTEND General Practice
DX: Z51.0 Encounter for antineoplastic radiation therapy (principal); C09.0 Malignant neoplasm of tonsillar fossa

== ENCOUNTER 2024-05-22 07:45 | Outpatient (RCR) | payer OTHER, MEDICAID ==
[~2024-05-22 07:45] MED LIST changes: -ACIP1TAB PO; +GABA-1490 PO; -GABA600T4 PO; +LIDVISCBTL PO; +METO1TAB32 PO; +OXYC1SOL3 PO; +RABE20TA88 PO
[2024-05-26] MEDS ORDERED: OXYC-673 PO (08:36)
[2024-05-26] MEDS ORDERED: XTAM9CAP PO (15:00)
== END 2024-05-23 ==
LOC: M ONCR 07:45
PROVIDERS: ATTEND General Practice
DX: Z51.0 Encounter for antineoplastic radiation therapy (principal); C09.0 Malignant neoplasm of tonsillar fossa

== ENCOUNTER 2024-06-06 20:11 | Inpatient (IN) | payer OTHER, MEDICAID ==
[~2024-06-06 20:11] MED LIST changes: +OXYC-673 PO; +XTAM9CAP PO
[2024-06-06] MEDS: EMLA CREAM 5GM TUBE (LIDOCAINE/PRILOCAINE) TOP ONE (21:18)
[2024-06-06] MEDS: NS 1,000 ML IV ONE (21:56)
[2024-06-06 22:04] LABS: BASO % 0.4 % (0.0-1.0); EOS % 0.8 % (0.0-3.0); HEMATOCRIT 31.2 % (42.0-52.0); HEMOGLOBIN 10.4 g/dl (13.5-17.5); LYMPH # 0.2 10^3/uL (1.5-5.0); LYMPH % 8.7 % (24.0-44.0); MEAN CORPUSCULAR HEMOGLOBIN 30.9 pg (27.0-33.0); MEAN CORPUSCULAR HGB CONC 33.3 g/dl (32.0-36.5); MEAN CORPUSCULAR VOLUME 92.6 fl (80.0-96.0); MONO # 0.7 10^3/uL (0.0-0.8); MONO % 29.5 % (2.0-8.0); NEUTROPHILS # 1.5 10^3/uL (1.5-8.5); NEUTROPHILS % 60.2 % (36.0-66.0); PLATELET COUNT, AUTOMATED 134 10^3/uL (150-450); RED BLOOD COUNT 3.37 10^6/uL (4.30-6.10); WHITE BLOOD COUNT 2.4 10^3/uL (4.0-10.0)
[2024-06-06 22:50] LABS: ALBUMIN 3.7 G/DL (3.2-5.2); BILIRUBIN,DIRECT 0.2 MG/DL (<0.4); BILIRUBIN,TOTAL 0.3 MG/DL (0.3-1.2); CREATININE FOR GFR 1.28 MG/DL (0.70-1.30); GLOMERULAR FILTRATION RATE 59.5 (>49); MAGNESIUM LEVEL 1.4 MG/DL (1.8-2.4); POTASSIUM SERUM 5.1 MMOL/L (3.5-5.1); TOTAL PROTEIN 6.7 G/DL (5.7-8.2)
[2024-06-06] MEDS: MAG SULF 1GM/100ML (MAG RUN) 1 GM in IV 1 EA IV ONE (23:41)
[2024-06-07] MEDS: INSULIN LISPRO (NovoLOG) PER UNIT SC SCH
[2024-06-07] MEDS ORDERED: GLUCOSE 4 GM CHEW PO PRN (00:25)
[2024-06-07] MEDS ORDERED: GLUCAGON INJ 1MG VIAL SC PRN (00:25)
[2024-06-07] MEDS ORDERED: DEXTROSE 50% 50ML SYRINGE IV PRN (00:25)
[2024-06-07 01:17] VITALS: BP 152/83; TEMP 97.5; O2SAT 100
[2024-06-07 01:24] LABS: HEMOGLOBIN 9.6 g/dl (13.5-17.5); MEAN CORPUSCULAR HEMOGLOBIN 30.5 pg (27.0-33.0); MEAN CORPUSCULAR HGB CONC 33.1 g/dl (32.0-36.5); MEAN CORPUSCULAR VOLUME 92.1 fl (80.0-96.0); PLATELET COUNT, AUTOMATED 127 10^3/uL (150-450); RED BLOOD COUNT 3.15 10^6/uL (4.30-6.10); WHITE BLOOD COUNT 2.1 10^3/uL (4.0-10.0)
[2024-06-07] MEDS ORDERED: HOME MED LIST COMPLETE! XX SCH (01:30)
[2024-06-07 06:48] LABS: BLOOD UREA NITROGEN 23 MG/DL (9-23); CALCIUM LEVEL 8.6 MG/DL (8.3-10.6); CARBON DIOXIDE LEVEL 15 MMOL/L (20-31); CHLORIDE LEVEL 106 MMOL/L (98-107); CREATININE FOR GFR 1.13 MG/DL (0.70-1.30); GLOMERULAR FILTRATION RATE > 60.0 (>49); GLUCOSE, FASTING 77 MG/DL (74-106); MAGNESIUM LEVEL 1.6 MG/DL (1.8-2.4); POTASSIUM SERUM 4.5 MMOL/L (3.5-5.1); SODIUM LEVEL 139 MMOL/L (136-145)
[2024-06-07] MEDS: HEPARIN SOD (PORCINE) 5000UNITS/ML 1ML VIAL/SYRINGE SQ SCH (09:37)
[2024-06-07] MEDS: SODIUM CHLORIDE 0.9% INJ 10 ML SYR IV SCH (09:38)
[2024-06-07] MEDS ORDERED: ISOVUE-370 76% 100ML VIAL As Ordered ONE (10:27)
[2024-06-07] MEDS: PANTOPRAZOLE 40MG VIAL IV SCH (10:57)
[2024-06-07] MEDS: D5W/0.45% SODIUM CHLORIDE 1,000 ML IV SCH (10:58)
[2024-06-07] MEDS: MAG SULF 1GM/100ML (MAG RUN) 1 GM in IV 1 EA IV SCH (10:58)
[2024-06-07 11:56] LABS: PERCENT SATURATION 35.5 % (19.7-50.0)
[2024-06-07 11:58] LABS: FERRITIN 1640.6 NG/ML (10.5-307.3)
[2024-06-07 12:02] LABS: FOLATE 10.15 NG/ML (>5.4)
[2024-06-07 12:10] VITALS: BP 155/83; TEMP 96.8; O2SAT 100
[2024-06-07] MEDS: LEVOTHYROXINE 100MCG (0.1MG) 5ML SDV PF (SOLUTION FORM) IV SCH (13:34)
[2024-06-07] MEDS: AMINO AC/ELECTROLYTE/DEX/CALC 1,000 ML IV SCH (18:22)
[2024-06-07] MEDS: FAT EMULSION IV 250 ML IV ONE (18:22)
[2024-06-07 19:16] LABS: BLOOD UREA NITROGEN 19 MG/DL (9-23); CALCIUM LEVEL 8.1 MG/DL (8.3-10.6); CARBON DIOXIDE LEVEL 16 MMOL/L (20-31); CHLORIDE LEVEL 106 MMOL/L (98-107); CREATININE FOR GFR 1.06 MG/DL (0.70-1.30); GLOMERULAR FILTRATION RATE > 60.0 (>49); GLUCOSE, FASTING 157 MG/DL (74-106); POTASSIUM SERUM 4.9 MMOL/L (3.5-5.1); SODIUM LEVEL 136 MMOL/L (136-145)
[2024-06-07 20:00] VITALS: BP 180/96; TEMP 97.7; O2SAT 96
[2024-06-07] MEDS: MORPHINE 2 MG/ML 1ML VIAL IV PRN (21:34)
[2024-06-08] VITALS (11 sets, daily range): BP systolic 150–193; BP diastolic 70–95; TEMP 97.5–98.1; O2SAT 93–99
[2024-06-08 06:13] LABS: BASO % 0.6 % (0.0-1.0); HEMATOCRIT 28.7 % (42.0-52.0); HEMOGLOBIN 9.9 g/dl (13.5-17.5); LYMPH # 0.1 10^3/uL (1.5-5.0); LYMPH % 5.1 % (24.0-44.0); MEAN CORPUSCULAR HEMOGLOBIN 30.8 pg (27.0-33.0); MEAN CORPUSCULAR HGB CONC 34.5 g/dl (32.0-36.5); MEAN CORPUSCULAR VOLUME 89.4 fl (80.0-96.0); MONO # 0.3 10^3/uL (0.0-0.8); MONO % 14.1 % (2.0-8.0); NEUTROPHILS # 1.4 10^3/uL (1.5-8.5); NEUTROPHILS % 79.6 % (36.0-66.0); PLATELET COUNT, AUTOMATED 128 10^3/uL (150-450); RED BLOOD COUNT 3.21 10^6/uL (4.30-6.10); WHITE BLOOD COUNT 1.8 10^3/uL (4.0-10.0)
[2024-06-08 06:30] LABS: BLOOD UREA NITROGEN 17 MG/DL (9-23); CALCIUM LEVEL 8.7 MG/DL (8.3-10.6); CARBON DIOXIDE LEVEL 21 MMOL/L (20-31); CHLORIDE LEVEL 108 MMOL/L (98-107); CREATININE FOR GFR 0.98 MG/DL (0.70-1.30); GLOMERULAR FILTRATION RATE > 60.0 (>49); GLUCOSE, FASTING 161 MG/DL (74-106); MAGNESIUM LEVEL 1.6 MG/DL (1.8-2.4); POTASSIUM SERUM 4.4 MMOL/L (3.5-5.1); SODIUM LEVEL 135 MMOL/L (136-145)
[2024-06-08] MEDS: MAG SULF 1GM/100ML (MAG RUN) 1 GM in IV 1 EA IV SCH (07:44)
[2024-06-08] MEDS: NS 1,000 ML IV SCH (08:13)
[2024-06-08] MEDS: ATORVASTATIN 20 MG TAB PO SCH (09:00)
[2024-06-08] MEDS: METOPROLOL TART 50 MG TAB PO SCH (09:00)
[2024-06-08] MEDS: DAPAGLIFLOZIN PROPANEDIOL 10MG TABLET (FARXIGA) PO SCH (09:00)
[2024-06-08] MEDS ORDERED: LORazepam 1 MG TAB PO SCH (09:00)
[2024-06-08] MEDS: ONDANSETRON 4MG 2ML VIAL IV PRN (09:39)
[2024-06-08] MEDS: hydrALAZINE 20MG/ML 1ML VIAL IV PRN (10:21)
[2024-06-08] MEDS: HYDROMORPHONE HCL 0.5 MG/ 0.5 ML SYRINGE IV PRN ×2 (10:32→19:26)
[2024-06-08] MEDS ORDERED: E-Z-PAQUE 96% w/w SUSP 176GM BTL As Ordered ONE (11:31)
[2024-06-08] MEDS ORDERED: VARIBAR PUDDING 40% w/v 230ML TUBE As Ordered ONE (11:31)
[2024-06-08] MEDS ORDERED: VARIBAR NECTAR 40% w/v 240ML SUSP BTL As Ordered ONE (11:31)
[2024-06-08] MEDS ORDERED: BARIUM SULFATE 700 MG TABLET (E-Z-DISK) As Ordered ONE (11:32)
[2024-06-08] MEDS: SODIUM PHOSPHATE INJ 20 MMOL in D5W 250 ML IV ONE (13:19)
[2024-06-08] MEDS: FAT EMULSION IV 250 ML IV ONE (17:31)
[2024-06-08] MEDS: MULTIVITAMIN -ADULT INJECTION 10 ML, ZINC/COPPER/MANGANESE/SELENIUM 1 ML in AMINO AC/EL... IV SCH (17:31)
[2024-06-08] MEDS ORDERED: INSULIN LISPRO (NovoLOG) PER UNIT SC SCH (18:00)
[2024-06-09] VITALS (7 sets, daily range): BP systolic 135–192; BP diastolic 64–84; TEMP 96.9–97.6; O2SAT 98–99
[2024-06-09 05:15] LABS: HEMATOCRIT 27.6 % (42.0-52.0); HEMOGLOBIN 9.6 g/dl (13.5-17.5); LYMPH # 0.1 10^3/uL (1.5-5.0); LYMPH % 2.9 % (24.0-44.0); MEAN CORPUSCULAR HEMOGLOBIN 30.9 pg (27.0-33.0); MEAN CORPUSCULAR HGB CONC 34.8 g/dl (32.0-36.5); MEAN CORPUSCULAR VOLUME 88.7 fl (80.0-96.0); MONO # 0.3 10^3/uL (0.0-0.8); MONO % 9.5 % (2.0-8.0); NEUTROPHILS # 2.7 10^3/uL (1.5-8.5); NEUTROPHILS % 87.3 % (36.0-66.0); PLATELET COUNT, AUTOMATED 122 10^3/uL (150-450); RED BLOOD COUNT 3.11 10^6/uL (4.30-6.10); WHITE BLOOD COUNT 3.1 10^3/uL (4.0-10.0)
[2024-06-09 05:38] LABS: BLOOD UREA NITROGEN 15 MG/DL (9-23); CALCIUM LEVEL 8.2 MG/DL (8.3-10.6); CARBON DIOXIDE LEVEL 24 MMOL/L (20-31); CHLORIDE LEVEL 107 MMOL/L (98-107); CREATININE FOR GFR 0.86 MG/DL (0.70-1.30); GLOMERULAR FILTRATION RATE > 60.0 (>49); GLUCOSE, FASTING 170 MG/DL (74-106); MAGNESIUM LEVEL 1.7 MG/DL (1.8-2.4); PHOSPHORUS LEVEL 2.8 MG/DL (2.4-5.1); POTASSIUM SERUM 4.4 MMOL/L (3.5-5.1); SODIUM LEVEL 135 MMOL/L (136-145)
[2024-06-09] MEDS: LEVOTHYROXINE 112MCG TABLET (0.112MG) PO SCH (06:14)
[2024-06-09] MEDS ORDERED: LIDOCAINE VISCOUS 2% SOLN 15ML UDC SS PRN ×2 (09:15→15:00)
[2024-06-09] MEDS ORDERED: LIDOCAINE VISCOUS 2% SOLN 15ML UDC PO ONE ×2 (09:15→11:00)
[2024-06-09] MEDS: PERCOCET 5MG/325MG TAB PO ONE (10:41)
[2024-06-09] MEDS: HYDROMORPHONE HCL 0.5 MG/ 0.5 ML SYRINGE IV PRN ×2 (10:51→22:56)
[2024-06-09] MEDS: **hydrALAZINE** 10 MG TAB PO SCH (12:41)
[2024-06-09] MEDS ORDERED: PERCOCET 5MG/325MG TAB PO PRN (14:00)
[2024-06-09] MEDS: MAG SULF 1GM/100ML (MAG RUN) 1 GM in IV 1 EA IV ONE (17:25)
[2024-06-09] MEDS: AMINO AC/ELECTROLYTE/DEX/CALC 1,000 ML IV SCH (17:27)
[2024-06-09] MEDS: FAT EMULSION IV 250 ML IV ONE (17:27)
[2024-06-10 03:20] VITALS: BP 162/86; TEMP 97.7; O2SAT 98
[2024-06-10 08:00] VITALS: BP 194/86; TEMP 97.9; O2SAT 97
[2024-06-10 08:19] VITALS: BP 168/74
[2024-06-10] MEDS: ONDANSETRON 4MG 2ML VIAL IV PRN (08:42)
[2024-06-10 09:56] LABS: HEMATOCRIT 29.9 % (42.0-52.0); HEMOGLOBIN 10.2 g/dl (13.5-17.5); MEAN CORPUSCULAR HEMOGLOBIN 30.4 pg (27.0-33.0); MEAN CORPUSCULAR HGB CONC 34.1 g/dl (32.0-36.5); MEAN CORPUSCULAR VOLUME 89.3 fl (80.0-96.0); PLATELET COUNT, AUTOMATED 124 10^3/uL (150-450); RED BLOOD COUNT 3.35 10^6/uL (4.30-6.10); WHITE BLOOD COUNT 2.2 10^3/uL (4.0-10.0)
[2024-06-10] MEDS: FUROSEMIDE 40MG/4ML VIAL IV ONE (09:57)
[2024-06-10] MEDS: NITROGLYCERIN 2% OINT 1 GM *U/D* PKT TOP ONE (09:57)
[2024-06-10 10:08] LABS: INR 0.98; PARTIAL THROMBOPLASTIN TIME 22.3 SECONDS (24.8-34.2); PROTHROMBIN TIME 12.7 SECONDS (12.5-14.5)
[2024-06-10 10:27] LABS: BLOOD UREA NITROGEN 17 MG/DL (9-23); CALCIUM LEVEL 8.4 MG/DL (8.3-10.6); CARBON DIOXIDE LEVEL 25 MMOL/L (20-31); CHLORIDE LEVEL 105 MMOL/L (98-107); CREATININE FOR GFR 0.91 MG/DL (0.70-1.30); GLOMERULAR FILTRATION RATE > 60.0 (>49); GLUCOSE, FASTING 129 MG/DL (74-106); SODIUM LEVEL 135 MMOL/L (136-145)
[2024-06-10 11:25] VITALS: BP 162/74
[2024-06-10 12:30] VITALS: BP 152/68; TEMP 97.5; O2SAT 99
[2024-06-10] MEDS ORDERED: FAT EMULSION IV 250 ML IV ONE (18:00)
[2024-06-10] MEDS ORDERED: INSULIN LISPRO (NovoLOG) PER UNIT SC SCH (18:00)
[2024-06-10] MEDS ORDERED: MULTIVITAMIN -ADULT INJECTION 10 ML, ZINC/COPPER/MANGANESE/SELENIUM 1 ML in AMINO AC/EL... IV SCH (18:00)
[2024-06-10] MEDS: FAT EMULSION IV 250 ML IV ONE (18:11)
[2024-06-10] MEDS: MULTIVITAMIN -ADULT INJECTION 10 ML, ZINC/COPPER/MANGANESE/SELENIUM 1 ML in AMINO AC/EL... IV SCH (18:11)
[2024-06-10 21:00] VITALS: BP 140/82; TEMP 96.8; O2SAT 97
[2024-06-11] VITALS (11 sets, daily range): BP systolic 118–160; BP diastolic 65–81; TEMP 97.5–98.1; O2SAT 92–98
[2024-06-11] MEDS ORDERED: PERMETHRIN 5% CREAM 60 GM TOP SCH
[2024-06-11] MEDS: diphenhydrAMINE 50MG/ML VIAL IV ONE (00:05)
[2024-06-11 07:09] LABS: HEMATOCRIT 29.4 % (42.0-52.0); HEMOGLOBIN 10.1 g/dl (13.5-17.5); MEAN CORPUSCULAR HEMOGLOBIN 30.7 pg (27.0-33.0); MEAN CORPUSCULAR HGB CONC 34.4 g/dl (32.0-36.5); MEAN CORPUSCULAR VOLUME 89.4 fl (80.0-96.0); PLATELET COUNT, AUTOMATED 123 10^3/uL (150-450); RED BLOOD COUNT 3.29 10^6/uL (4.30-6.10); WHITE BLOOD COUNT 1.9 10^3/uL (4.0-10.0)
[2024-06-11 07:38] LABS: BLOOD UREA NITROGEN 21 MG/DL (9-23); CALCIUM LEVEL 8.3 MG/DL (8.3-10.6); CARBON DIOXIDE LEVEL 27 MMOL/L (20-31); CHLORIDE LEVEL 103 MMOL/L (98-107); CREATININE FOR GFR 1.05 MG/DL (0.70-1.30); GLOMERULAR FILTRATION RATE > 60.0 (>49); GLUCOSE, FASTING 157 MG/DL (74-106); POTASSIUM SERUM 3.9 MMOL/L (3.5-5.1); SODIUM LEVEL 136 MMOL/L (136-145)
[2024-06-11] MEDS: NS 1,000 ML IV SCH (14:15)
[2024-06-11] MEDS ORDERED: ONDANSETRON 4MG 2ML VIAL As Ordered ONE (14:43)
[2024-06-11] MEDS ORDERED: ACETAMINOPHEN 1000MG 100ML IV BAG As Ordered ONE (14:43)
[2024-06-11] MEDS ORDERED: fentaNYL 100 MCG/2 ML INJECTION As Ordered ONE (14:45)
[2024-06-11] MEDS ORDERED: MIDAZOLAM INJ 2MG/2ML VIAL As Ordered ONE (14:45)
[2024-06-11] MEDS ORDERED: ceFAZolin 2 GM/D5W 50 ML IV BAG As Ordered ONE (14:56)
[2024-06-11] MEDS ORDERED: GLUCAGON INJ 1MG VIAL As Ordered ONE (14:56)
[2024-06-11] MEDS ORDERED: ISOVUE-300 61% 100ML VIAL As Ordered ONE (14:56)
[2024-06-11] MEDS ORDERED: LIDOCAINE 2% JELLY 6ML SYRINGE As Ordered ONE (14:57)
[2024-06-11] MEDS: ceFAZolin SOD 2 GM in IV 1 EA IV ONE (15:00)
[2024-06-11] MEDS ORDERED: LIDOCAINE 1% MDV 20ML VIAL As Ordered ONE (15:14)
[2024-06-11] MEDS ORDERED: hydrALAZINE 20MG/ML 1ML VIAL As Ordered ONE (15:53)
[2024-06-11] MEDS ORDERED: ACETAMINOPHEN 500 MG TAB PO PRN (16:05)
[2024-06-11] MEDS ORDERED: HYDROmorphone HCL 2MG/ML 1ML VIAL As Ordered ONE (16:31)
[2024-06-11] MEDS: **hydrALAZINE HCL** 25 MG TAB PO SCH (17:33)
[2024-06-11] MEDS: FAT EMULSION IV 250 ML IV ONE (18:05)
[2024-06-11] MEDS: AMINO AC/ELECTROLYTE/DEX/CALC 1,000 ML IV SCH (18:05)
[2024-06-11] MEDS: NITROGLYCERIN 2% OINT 1 GM *U/D* PKT TOP ONE (18:51)
[2024-06-11] MEDS: METOPROLOL TART 50 MG TAB PO SCH (21:00)
[2024-06-11] MEDS: PERMETHRIN 5% CREAM 60 GM TOP ONE (21:22)
[2024-06-12] VITALS (8 sets, daily range): BP systolic 102–160; BP diastolic 60–93; TEMP 97.5–98.2; O2SAT 94–99
[2024-06-12 06:31] LABS: HEMATOCRIT 28.7 % (42.0-52.0); HEMOGLOBIN 10.1 g/dl (13.5-17.5); MEAN CORPUSCULAR HEMOGLOBIN 31.3 pg (27.0-33.0); MEAN CORPUSCULAR HGB CONC 35.2 g/dl (32.0-36.5); MEAN CORPUSCULAR VOLUME 88.9 fl (80.0-96.0); PLATELET COUNT, AUTOMATED 128 10^3/uL (150-450); RED BLOOD COUNT 3.23 10^6/uL (4.30-6.10); WHITE BLOOD COUNT 2.9 10^3/uL (4.0-10.0)
[2024-06-12 06:51] LABS: BLOOD UREA NITROGEN 25 MG/DL (9-23); CALCIUM LEVEL 8.8 MG/DL (8.3-10.6); CARBON DIOXIDE LEVEL 29 MMOL/L (20-31); CHLORIDE LEVEL 102 MMOL/L (98-107); CREATININE FOR GFR 1.03 MG/DL (0.70-1.30); GLOMERULAR FILTRATION RATE > 60.0 (>49); GLUCOSE, FASTING 170 MG/DL (74-106); POTASSIUM SERUM 3.9 MMOL/L (3.5-5.1); SODIUM LEVEL 135 MMOL/L (136-145)
[2024-06-12] MEDS: NORCO, ANEXSIA 5/325MG TABLET (HYDROcodone/ACETAMINOPHEN) PO ONE (21:23)
[2024-06-12] MEDS: NS 500 ML IV ONE (22:03)
[2024-06-12] MEDS: ACETAMINOPHEN *IV* 1,000 MG in IV 1 EA IV ONE (22:06)
[2024-06-13 00:20] VITALS: BP 129/70; TEMP 97.7; O2SAT 93
[2024-06-13 04:00] VITALS: BP 146/71; TEMP 97.7; O2SAT 92
[2024-06-13 06:31] VITALS: BP 120/65
[2024-06-13 06:49] LABS: HEMATOCRIT 28.2 % (42.0-52.0); HEMOGLOBIN 9.6 g/dl (13.5-17.5); MEAN CORPUSCULAR HEMOGLOBIN 30.4 pg (27.0-33.0); MEAN CORPUSCULAR VOLUME 89.2 fl (80.0-96.0); PLATELET COUNT, AUTOMATED 115 10^3/uL (150-450); RED BLOOD COUNT 3.16 10^6/uL (4.30-6.10); WHITE BLOOD COUNT 2.2 10^3/uL (4.0-10.0)
[2024-06-13 07:09] LABS: BLOOD UREA NITROGEN 29 MG/DL (9-23); CALCIUM LEVEL 8.4 MG/DL (8.3-10.6); CARBON DIOXIDE LEVEL 29 MMOL/L (20-31); CHLORIDE LEVEL 104 MMOL/L (98-107); CREATININE FOR GFR 1.19 MG/DL (0.70-1.30); GLOMERULAR FILTRATION RATE > 60.0 (>49); GLUCOSE, FASTING 194 MG/DL (74-106); POTASSIUM SERUM 3.4 MMOL/L (3.5-5.1); SODIUM LEVEL 136 MMOL/L (136-145)
[2024-06-13 12:00] VITALS: BP 112/64; TEMP 97.6; O2SAT 95
[2024-06-13 19:50] VITALS: BP 127/66; TEMP 97.7; O2SAT 93
[2024-06-13] MEDS: SODIUM CHLORIDE 0.9% INJ 10 ML SYR IV PRN (19:59)
[2024-06-13 23:40] VITALS: BP 120/66; TEMP 97.7; O2SAT 94
[2024-06-14 03:40] VITALS: BP 121/61; TEMP 98.1; O2SAT 95
[2024-06-14 06:18] LABS: HEMOGLOBIN 10.3 g/dl (13.5-17.5); MEAN CORPUSCULAR HEMOGLOBIN 30.7 pg (27.0-33.0); MEAN CORPUSCULAR HGB CONC 33.2 g/dl (32.0-36.5); MEAN CORPUSCULAR VOLUME 92.3 fl (80.0-96.0); PLATELET COUNT, AUTOMATED 128 10^3/uL (150-450); RED BLOOD COUNT 3.36 10^6/uL (4.30-6.10); WHITE BLOOD COUNT 2.3 10^3/uL (4.0-10.0)
[2024-06-14 06:35] LABS: BLOOD UREA NITROGEN 30 MG/DL (9-23); CALCIUM LEVEL 8.8 MG/DL (8.3-10.6); CARBON DIOXIDE LEVEL 33 MMOL/L (20-31); CHLORIDE LEVEL 102 MMOL/L (98-107); CREATININE FOR GFR 1.24 MG/DL (0.70-1.30); GLOMERULAR FILTRATION RATE > 60.0 (>49); GLUCOSE, FASTING 108 MG/DL (74-106); POTASSIUM SERUM 3.7 MMOL/L (3.5-5.1); SODIUM LEVEL 137 MMOL/L (136-145)
[2024-06-14 12:04] VITALS: BP 124/67; TEMP 97.7; O2SAT 96
[2024-06-14] MEDS: MAALOX 30 ML SUSP *UDC PO ONE (14:35)
[2024-06-14] MEDS ORDERED: MAALOX 30 ML SUSP *UDC PO PRN (14:35)
[2024-06-14 20:00] VITALS: BP 134/72; TEMP 97.7; O2SAT 96
[2024-06-14] MEDS: OMEPRAZOLE/SODIUM BICARB 20-840MG 10ML ORAL SYRINGE GT SCH (20:57)
[2024-06-14] MEDS: RAMELTEON 8 MG TAB (ROZEREM) PO PRN (20:58)
[2024-06-15 04:00] VITALS: BP 163/95; TEMP 98.2; O2SAT 98
[2024-06-15 06:50] LABS: HEMATOCRIT 26.2 % (42.0-52.0); HEMOGLOBIN 8.8 g/dl (13.5-17.5); MEAN CORPUSCULAR HGB CONC 33.6 g/dl (32.0-36.5); MEAN CORPUSCULAR VOLUME 92.3 fl (80.0-96.0); RED BLOOD COUNT 2.84 10^6/uL (4.30-6.10); WHITE BLOOD COUNT 2.1 10^3/uL (4.0-10.0)
[2024-06-15 07:08] LABS: BLOOD UREA NITROGEN 29 MG/DL (9-23); CALCIUM LEVEL 7.9 MG/DL (8.3-10.6); CARBON DIOXIDE LEVEL 32 MMOL/L (20-31); CHLORIDE LEVEL 100 MMOL/L (98-107); CREATININE FOR GFR 1.12 MG/DL (0.70-1.30); GLOMERULAR FILTRATION RATE > 60.0 (>49); GLUCOSE, FASTING 138 MG/DL (74-106); SODIUM LEVEL 137 MMOL/L (136-145)
[2024-06-15 07:20] LABS: PLATELET COUNT, AUTOMATED 98 10^3/uL (150-450)
[2024-06-15 12:00] VITALS: BP 111/63; TEMP 97.7; O2SAT 97
[2024-06-15 14:00] VITALS: BP 114/63
== END 2024-06-15 16:48 | disposition home health service (06) | DRG 157 ==
LOC: M ED 20:11 → M ED INP 23:26 → M MSPAV 06-07 01:17 → M ICU 06-08 09:50 → M MSPAV 06-09 20:28
PROVIDERS: ADMIT Family Medicine; ATTEND General Practice
PROC: 0DH63UZ Insertion of Feeding Device into Stomach, Percutaneous Approach (ICD-10-PCS; principal; 2024-06-11 14:00)
DX: K12.33 Oral mucositis (ulcerative) due to radiation (principal); D61.810 Antineoplastic chemotherapy induced pancytopenia; E46 Unspecified protein-calorie malnutrition; E87.20 Acidosis, unspecified; E03.9 Hypothyroidism, unspecified; E83.42 Hypomagnesemia; R13.12 Dysphagia, oropharyngeal phase; C09.9 Malignant neoplasm of tonsil, unspecified; I25.10 Atherosclerotic heart disease of native coronary artery without angina pectoris; G89.3 Neoplasm related pain (acute) (chronic); E78.5 Hyperlipidemia, unspecified; I10 Essential (primary) hypertension; R59.9 Enlarged lymph nodes, unspecified; K21.9 Gastro-esophageal reflux disease without esophagitis; E83.39 Other disorders of phosphorus metabolism; Z87.891 Personal history of nicotine dependence; Z92.3 Personal history of irradiation; Z92.21 Personal history of antineoplastic chemotherapy; E11.9 Type 2 diabetes mellitus without complications; Z95.2 Presence of prosthetic heart valve; Z79.899 Other long term (current) drug therapy; Z91.040 Latex allergy status; Z88.6 Allergy status to analgesic agent; Z91.030 Bee allergy status

== ENCOUNTER 2024-06-08 08:00 | Outpatient (RCR) | payer OTHER, MEDICAID ==
[2024-06-17] MEDS ORDERED: DILA2TAB6 PO (10:03)
== END 2024-06-22 ==
LOC: M ONCR 08:00
PROVIDERS: ATTEND General Practice
DX: Z51.0 Encounter for antineoplastic radiation therapy (principal); C09.0 Malignant neoplasm of tonsillar fossa

== ENCOUNTER → 2024-06-30 | Outpatient (CLI) | payer OTHER, MEDICAID ==
[~2024-06-30] MED LIST changes: +DILA2TAB6 PO
== END ==
LOC: M ONCR 10:54
PROVIDERS: ATTEND General Practice
DX: R07.0 Pain in throat (principal); Z93.1 Gastrostomy status

== ENCOUNTER → 2024-07-16 | Outpatient (CLI) | payer MEDICAID, OTHER ==
[~2024-07-16] MED LIST changes: +NYST-38 PO
== END ==
LOC: M ONCR 08:24
PROVIDERS: ATTEND General Practice
DX: B37.0 Candidal stomatitis (principal); Z92.3 Personal history of irradiation; Z93.1 Gastrostomy status

== ENCOUNTER → 2024-07-28 | Outpatient (REF) | payer OTHER ==
[2024-07-28 09:44] LABS: BASO % 0.7 % (0.0-1.0); EOS # 0.3 10^3/uL (0.0-0.5); HEMATOCRIT 30.9 % (42.0-52.0); HEMOGLOBIN 10.3 g/dl (13.5-17.5); LYMPH # 0.3 10^3/uL (1.5-5.0); LYMPH % 6.5 % (24.0-44.0); MEAN CORPUSCULAR HEMOGLOBIN 32.2 pg (27.0-33.0); MEAN CORPUSCULAR HGB CONC 33.3 g/dl (32.0-36.5); MEAN CORPUSCULAR VOLUME 96.6 fl (80.0-96.0); MONO # 0.8 10^3/uL (0.0-0.8); MONO % 17.4 % (2.0-8.0); NEUTROPHILS # 3.1 10^3/uL (1.5-8.5); NEUTROPHILS % 69.2 % (36.0-66.0); PLATELET COUNT, AUTOMATED 189 10^3/uL (150-450); WHITE BLOOD COUNT 4.5 10^3/uL (4.0-10.0)
[2024-07-28 10:06] LABS: MALB URINE SIEMENS < 3.0 MG/L; MAU/CREAT RATIO 2.1 MCG/MG (0.0-30.0); PREALBUMIN 17.9 MG/DL (10.0-40.0)
[2024-07-28 10:09] LABS: HEMOGLOBIN A1c 7.6 % (4.0-6.0)
[2024-07-28 10:11] LABS: ALBUMIN 3.5 G/DL (3.2-5.2); ALKALINE PHOSPHATASE 88 U/L (40-129); ALT/SGPT 10 U/L (7.0-40); AST/SGOT 11 U/L (<34); BILIRUBIN,TOTAL 0.5 MG/DL (0.3-1.2); BLOOD UREA NITROGEN 25 MG/DL (9-23); CALCIUM LEVEL 9.1 MG/DL (8.3-10.6); CARBON DIOXIDE LEVEL 28 MMOL/L (20-31); CHLORIDE LEVEL 105 MMOL/L (98-107); CREATININE FOR GFR 0.96 MG/DL (0.70-1.30); GLOMERULAR FILTRATION RATE > 60.0 (>49); GLUCOSE, FASTING 150 MG/DL (74-106); MAGNESIUM LEVEL 1.4 MG/DL (1.8-2.4); PHOSPHORUS LEVEL 4.2 MG/DL (2.4-5.1); POTASSIUM SERUM 3.8 MMOL/L (3.5-5.1); SODIUM LEVEL 141 MMOL/L (136-145); THYROID STIMULATING HORMONE 2.049 uIU/ML (0.55-4.78); TOTAL PROTEIN 6.5 G/DL (5.7-8.2)
== END ==
LOC: M LAB REF 09:01
PROVIDERS: ATTEND Family Medicine
DX: E46 Unspecified protein-calorie malnutrition (principal); R13.10 Dysphagia, unspecified; E03.9 Hypothyroidism, unspecified

== ENCOUNTER → 2024-09-08 | Outpatient (CLI) | payer OTHER, MEDICAID ==
[~2024-09-08] MED LIST changes: +DIFL200T PO; +FLUC-1 PO; +[UNRECOGNIZED DRUG - CODE] BU
== END ==
LOC: M PLARAD 09:00
PROVIDERS: ATTEND General Practice
DX: C09.0 Malignant neoplasm of tonsillar fossa (principal)
CPT/HCPCS: 78815; A9552

== ENCOUNTER → 2024-09-10 | Outpatient (CLI) | payer OTHER | LOC: M ONCR 08:00 | PROVIDERS: ATTEND General Practice | DX: C09.0 Malignant neoplasm of tonsillar fossa (principal); Z92.21 Personal history of antineoplastic chemotherapy; Z92.3 Personal history of irradiation; Z87.891 Personal history of nicotine dependence; Z91.030 Bee allergy status; J30.89 Other allergic rhinitis; Z91.048 Other nonmedicinal substance allergy status; Z91.040 Latex allergy status; Z88.4 Allergy status to anesthetic agent; Z88.6 Allergy status to analgesic agent; Z79.891 Long term (current) use of opiate analgesic; Z79.899 Other long term (current) drug therapy; Z79.84 Long term (current) use of oral hypoglycemic drugs; Z79.890 Hormone replacement therapy | CPT/HCPCS: 31575; G0463 ==

== ENCOUNTER → 2024-09-11 | Outpatient (CLI) | payer OTHER ==
[~2024-09-11] MED LIST changes: +LIDOCAINE 1% MDV 20ML VIAL As Ordered ONE; +MIDAZOLAM INJ 2MG/2ML VIAL As Ordered ONE; +NS (Normal Saline) 0.9% 1,000 ML IV SCH; +ceFAZolin 2 GM/D5W 50 ML IV BAG As Ordered ONE; +fentaNYL 100 MCG/2 ML INJECTION As Ordered ONE
[2024-09-11 07:08] VITALS: TEMP 98.1
[2024-09-11] MEDS: ceFAZolin SOD 2 GM in IV 1 EA IV ONE (08:12)
[2024-09-11 09:30] VITALS: BP 158/83; O2SAT 98
== END ==
LOC: M IRPRO 06:46
PROVIDERS: ATTEND General Practice
DX: C09.0 Malignant neoplasm of tonsillar fossa (principal)
CPT/HCPCS: 36590; 99152; 99153; J0690; J2250; J3010

== ENCOUNTER → 2024-12-07 | Outpatient (CLI) | payer MEDICAID, OTHER ==
[~2024-12-07] MED LIST changes: -LIDOCAINE 1% MDV 20ML VIAL As Ordered ONE; -MIDAZOLAM INJ 2MG/2ML VIAL As Ordered ONE; -NS (Normal Saline) 0.9% 1,000 ML IV SCH; -ceFAZolin 2 GM/D5W 50 ML IV BAG As Ordered ONE; -fentaNYL 100 MCG/2 ML INJECTION As Ordered ONE
== END ==
LOC: M PLARAD 09:04
PROVIDERS: ATTEND Nurse Practitioner Women's Health
DX: C09.9 Malignant neoplasm of tonsil, unspecified (principal)
CPT/HCPCS: 78815; A9552

== ENCOUNTER → 2024-12-09 | Outpatient (CLI) | payer OTHER ==
[~2024-12-09] MED LIST changes: +DICY1CAP8 PO; +DICY20TA20 PO
== END ==
LOC: M ONCR 13:03
PROVIDERS: ATTEND General Practice
DX: C09.0 Malignant neoplasm of tonsillar fossa (principal); R19.7 Diarrhea, unspecified; Z92.21 Personal history of antineoplastic chemotherapy; Z92.3 Personal history of irradiation; Z87.891 Personal history of nicotine dependence; Z91.030 Bee allergy status; Z91.048 Other nonmedicinal substance allergy status; J30.89 Other allergic rhinitis; Z91.040 Latex allergy status; Z88.4 Allergy status to anesthetic agent; Z88.6 Allergy status to analgesic agent; Z79.890 Hormone replacement therapy; Z79.899 Other long term (current) drug therapy
CPT/HCPCS: 31575; G0463

== ENCOUNTER → 2024-12-25 | Outpatient (REF) | payer OTHER, MEDICAID ==
[2024-12-25 08:53] LABS: HEMOGLOBIN A1c 6.2 % (4.0-6.0)
== END ==
LOC: M LAB REF 08:18
PROVIDERS: ATTEND Family Medicine
DX: E11.9 Type 2 diabetes mellitus without complications (principal); E03.9 Hypothyroidism, unspecified

== ENCOUNTER → 2025-03-29 | Outpatient (CLI) | payer MEDICARE ==
[~2025-03-29] MED LIST changes: +LISI40TA10 PO; -LISI40TA4 PO; -RABE1TAB4 PO; +RABE1TAB5 PO
== END ==
LOC: M RAD 16:13
PROVIDERS: ATTEND Internal Medicine Medical Oncology
DX: C09.9 Malignant neoplasm of tonsil, unspecified (principal)

== ENCOUNTER → 2025-07-13 | Outpatient (CLI) | payer MEDICAID, MEDICARE ==
[~2025-07-13] MED LIST changes: -ASPI-655 PO; +ASPI-737 PO; -KETO0.5S4 OD; +KETO5DRO32 OD
[2025-07-13 12:47] LABS: CHOLESTEROL LEVEL 121.0 MG/DL (<200); CHOLESTEROL RISK RATIO 2.98 (<5); LDL CHOLESTEROL 62.3 MG/DL (<100); NON-HDL-C 80.5 MG/DL; TRIGLYCERIDES LEVEL 91.0 MG/DL (<150)
[2025-07-13 13:12] LABS: ESTIMATED AVERAGE GLUCOSE 174.0 MG/DL (60-110)
[2025-07-14 16:51] LABS: CREATININE, URINE 149.4 MG/DL
[2025-07-14 16:52] LABS: MALB URINE SIEMENS 10.0 MG/L; MAU/CREAT RATIO 6.6 MCG/MG (0.0-30.0)
== END ==
LOC: M WUC 08:40
PROVIDERS: ATTEND Family Medicine
DX: E03.9 Hypothyroidism, unspecified (principal); E78.5 Hyperlipidemia, unspecified; E11.9 Type 2 diabetes mellitus without complications

== ENCOUNTER → 2025-09-03 | Outpatient (CLI) | payer MEDICARE ==
[~2025-09-03] MED LIST changes: +ISOVUE-370 76% 100 ML VIAL As Ordered ONE
== END ==
LOC: M RAD 10:27
PROVIDERS: ATTEND General Practice
DX: C09.0 Malignant neoplasm of tonsillar fossa (principal)
CPT/HCPCS: 70491; Q9967

== ENCOUNTER → 2025-09-10 | Outpatient (CLI) | payer MEDICARE ==
[~2025-09-10] MED LIST changes: -ISOVUE-370 76% 100 ML VIAL As Ordered ONE
== END ==
LOC: M ONCR 13:19
PROVIDERS: ATTEND General Practice
DX: C09.9 Malignant neoplasm of tonsil, unspecified (principal); J30.2 Other seasonal allergic rhinitis; Z79.84 Long term (current) use of oral hypoglycemic drugs; Z79.899 Other long term (current) drug therapy; Z92.3 Personal history of irradiation; Z87.891 Personal history of nicotine dependence; Z88.6 Allergy status to analgesic agent; Z88.4 Allergy status to anesthetic agent; Z91.030 Bee allergy status; Z91.040 Latex allergy status; Z91.09 Other allergy status, other than to drugs and biological substances